=== PATIENT | male | born 1970 | race Caucasian/White ===

== ENCOUNTER 2017-09-01 16:49 | Emergency (ER) | payer BC ==
[2017-09-01 17:06] VITALS: BP 130/84
--- NOTE | 2017-09-01 17:13 | UC ---
Eye Complaint HPI - HPI Summary HPI Summary: PT PRESENTS WITH IRRITATION AND SWELLING LEFT UPPER EYE LID SINCE YESTERDAY MORNING. DENIES VISUAL DISTURBANCES, NAUSEA, HAQ, EYE DRAINAGE. NO RECENT ILLNESS OR INJURY TO EYE. IS HERE FROM [place] ON A COLLEGE TOUR WITH HIS SON. - History of Current Complaint Chief Complaint: UCEye Stated Complaint: EYE IRRITATION Time Seen by Provider: 09/01/17 17:12 Hx Obtained From: Patient Onset/Duration: Sudden Onset, Lasting Days, Still Present Timing: Constant Severity Initially: Moderate Severity Currently: Moderate Pain Intensity: 3 Pain Scale Used: 0-10 Numeric Location of Injury: Eye Lid (upper) - LEFT Aggravating Factor(s): Nothing Alleviating Factor(s): Nothing Associated Signs And Symptoms: Positive: Swelling. Negative: Photophobia, Drainage (Clear), Drainage (Purulent), Vision Impairment Bilateral, Vision Impairment Right, Vision Impairment Left, Fever - Allergies/Home Medications Allergies/Adverse Reactions: Allergies Allergy/AdvReac Type Severity Reaction Status Date / Time No Known Allergies Allergy Verified 09/01/17 17:06 Home Medications: Home Medications Adalimumab (NF) [Humira Pen (NF)] 40 mg SUBCUT SEE INSTRUCTIONS 09/01/17 [ History Confirmed 09/01/17] PMH/Surg Hx/FS Hx/Imm Hx - Additional Past Medical History Additional PMH: PSORIATIC ARTHRITIS - Surgical History Surgical History: Yes Surgery Procedure, Year, and Place: hernia repair - Family History Known Family History: Negative: Hypertension - Social History Alcohol Use: Occasionally Substance Use Type: None Smoking Status (MU): Never Smoked Tobacco Review of Systems Constitutional: Negative Eyes: Other - LEFT UPPER EYE LID EDEMA Respiratory: Negative Cardiovascular: Negative Gastrointestinal: Negative All Other Systems Reviewed And Are Negative: Yes Physical Exam Triage Information Reviewed: Yes Appearance: Well-Appearing, No Pain Distress, Well-Nourished Vital Signs: Initial Vital Signs Temp 98.0 F 09/01/17 17: Pulse 62 09/01/17 17:02 Resp 18 09/01/17 17:02 BP 130/84 09/01/17 17:02 Pulse Ox 100 09/01/17 17:02 Vital Signs Reviewed: Yes Eyes: Positive: Conjunctiva Clear, Other: - LEFT UPPER EYELID EDEMA AND ERYTHEMA WITH TENDER LUMP PALPATED. Negative: Discharge ENT: Positive: Hearing grossly normal Neck: Positive: Supple Respiratory: Positive: No respiratory distress, No accessory muscle use Cardiovascular: Positive: Pulses Normal Abdomen Description: Positive: Soft Musculoskeletal: Positive: No Edema Neurological: Positive: Alert Psychological: Positive: Age Appropriate Behavior Skin: Positive: Other - LEFT UPPER EYE LID EDEMA AND ERYTHEMA Eye Complaint Course/Dx - Differential Dx/Diagnosis Provider Diagnoses: STYE - LEFT UPPER EYE LID Discharge - Sign-Out/Discharge Documenting (check all that apply): Discharge - Discharge Plan Condition: Stable Disposition: HOME Prescriptions: Erythromycin OPHTH.OINT* [Ilotycin OPHTH.OINT*] 1 applic LEFT EYE QID #1 tube Patient Education Materials: Stye (ED) Referrals: No Primary Care Phys,NOPCP [Primary Care Provider] - Additional Instructions: What is a stye? A stye is a red and painful lump on the eyelid. It happens when a small gland on the edge of the eyelid gets infected or inflamed. Styes can occur on the upper or lower eyelids. Most styes get better on their own after a few days to a week. Another word for stye is hordeolum. People sometimes get a stye confused with a different eye problem called a chalazion. A chalazion also causes a lump on the eyelid. But a stye is caused by an infection and is painful. A chalazion is not tender or painful, but it often lasts longer than a stye does. What are the symptoms of a stye? People who have a stye have a red and painful lump on the edge of their eyelid. A stye usually develops over a few days. It can look like a pimple. Styes can cause other symptoms, too, such as tearing and eyelid pain and swelling. Is there a test for a stye? No. But your doctor or nurse should be able to tell if you have a stye by doing an exam and talking with you. Is there anything I can do on my own to feel better? Yes. To ease your symptoms and help your stye get better, you can put warm, wet pressure on the stye. Wet a clean wash cloth with warm water and put it over your stye. When the wash cloth cools, reheat it with warm water and put it back over the stye. Repeat these steps for 5 to 15 minutes, and try to do this 3 to 4 times a day. You should NOT squeeze or pop your stye. Also, you should not wear eye makeup or contact lenses until your stye is all better. Should I see a doctor or nurse? See your doctor or nurse if: -Your stye doesnt go away after you treat it on your own for 1 week -Your stye gets very big, bleeds, or affects your vision -Your whole eye is red, or your whole eyelid is red and swollen -The redness or swelling spreads to your cheek or other parts of your face What treatments might my doctor use? If your stye doesnt get better or if it leads to other problems, your doctor might: -Prescribe a cream or ointment that goes in the eye and on the eyelid -Prescribe antibiotic medicines -Drain the stye Can styes be prevented? Yes. To lower your chances of getting a stye, you can: -Wash your hands before you touch your eyes -Wash your hands before you put in contact lenses and keep your contact lenses clean (if you wear contact lenses) -Take off your eye makeup each night -Not share eye makeup with other people IF YOUR SYMPTOMS DO NOT IMPROVE EXPECTED FOLLOW-UP WITH AN RELATIONS MANAGER BACK HOME IN [place]. - Billing Disposition and Condition Condition: STABLE Disposition: HOME
== END 2017-09-01 17:37 | disposition home or self-care (01) ==
LOC: UCEAST 16:49
DX: H00.024 Hordeolum internum left upper eyelid (principal); L40.50 Arthropathic psoriasis, unspecified
CPT/HCPCS: 99202; G0463